=== PATIENT | male | born 1985 | race Caucasian/White ===

== ENCOUNTER 2021-08-23 20:50 | Emergency (ER) | payer SELFPAY ==
[~2021-08-23] VITALS: Ht 183 cm; Wt 86.0 kg
[~2021-08-23 20:50] MED LIST: BSP10T PO; MIRT15TA6 PO
[2021-08-23] MEDS ORDERED: fentaNYL INJ 100 MCG/2 ML AMP IVP ONE (21:15)
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
[2021-08-23 22:23] LABS: BASOPHILS # (AUTO) 0.1 10^3/uL (0.0-0.1); BASOPHILS % (AUTO) 1 % (0-10); EOSINOPHILS # (AUTO) 0.1 10^3/uL (0.0-0.3); EOSINOPHILS % (AUTO) 1 % (0-10); HEMATOCRIT 48 % (40-54); HEMOGLOBIN 16.6 g/dL (13.3-17.7); LYMPHOCYTES # (AUTO) 1.2 10^3/uL (1.0-4.0); LYMPHOCYTES % (AUTO) 13 % (12-44); MEAN CORPUSCULAR HEMOGLOBIN 30 pg (25-34); MEAN CORPUSCULAR HGB CONC 34 g/dL (32-36); MEAN CORPUSCULAR VOLUME 86 fL (80-99); MEAN PLATELET VOLUME 11.1 fL (9.0-12.2); MONOCYTES # (AUTO) 0.4 10^3/uL (0.0-1.0); MONOCYTES % (AUTO) 4 % (0-12); NEUTROPHILS # (AUTO) 7.3 10^3/uL (1.8-7.8); NEUTROPHILS % (AUTO) 80 % (42-75); PLATELET COUNT 256 10^3/uL (130-400); WHITE BLOOD COUNT 9.2 10^3/uL (4.3-11.0)
[2021-08-23 22:26] LABS: ALBUMIN 4.2 GM/DL (3.2-4.5)
[2021-08-23] MEDS ORDERED: ACHD5005 PO (22:26)
[2021-08-23 22:27] LABS: POTASSIUM 3.7 MMOL/L (3.6-5.0)
[2021-08-23 22:28] LABS: CALCIUM 8.5 MG/DL (8.5-10.1)
[2021-08-23 22:31] LABS: BILIRUBIN,TOTAL 0.4 MG/DL (0.1-1.0)
[2021-08-23 22:33] LABS: CREATININE SERUM 0.75 MG/DL (0.60-1.30)
[2021-08-24 05:10] VITALS: BP 122/82
== END 2021-08-23 22:40 | disposition home or self-care (01) ==
LOC: EDUNIT# 20:50 → ER 20:53
DX: S06.0X0A Concussion without loss of consciousness, initial encounter (principal); S62.340A Nondisplaced fracture of base of second metacarpal bone, right hand, initial encounter for closed fracture; F17.210 Nicotine dependence, cigarettes, uncomplicated; V89.2XXA Person injured in unspecified motor-vehicle accident, traffic, initial encounter
CPT/HCPCS: 29125; 70450; 71045; 72125; 72128; 72131; 73090; 73130; 73502; 73562; 73610; 80053; 85025; 93005; 99284; G0480; 36415; 80320